=== PATIENT | female | born 1960 | race Caucasian/White ===

== ENCOUNTER 2016-10-09 19:10 | Emergency (ER) | payer MEDICAID, OTHER ==
[~2016-10-09] VITALS: Ht 162.6 cm; Wt 82.0 kg
[~2016-10-09 19:10] MED LIST: ATEN-51 PO; CIPR500T4 PO; HYDR-762 PO; LISI40TA9 PO; METF500T3 PO; METR500T PO; ONDA4TAB35 PO; SERT50TA PO
[2016-10-09 19:19] VITALS: Ht 162.6 cm; Wt 82.0 kg
[2016-10-09 19:55] LABS: URINE BLOOD (Dip) POC 3+ (NEGATIVE)
[2016-10-09] MEDS ORDERED: ACETAMINOPHEN 325 MG TAB PO ONE (20:00)
--- NOTE | 2016-10-09 20:10 | RADRPT ---
PROCEDURE: XR Chest. CLINICAL INDICATION: Fever. TECHNIQUE: Single frontal view of the chest was obtained COMPARISON: None FINDINGS: The heart and mediastinum are within normal limits. The lungs are clear. There is no pleural effusion or pneumothorax. IMPRESSION: No acute disease. RPTAT: [facility] Physician Cj Date Time Electronically viewed and signed by Physician Cj on 10/09/2016 20:10 RS/
[2016-10-09] MEDS ORDERED: CEFTRIAXONE 1 GM INJ IM ONE (20:30)
[2016-10-09] MEDS ORDERED: LIDOCAINE 1% (MDV) 20 ML INJ SC ONE (20:30)
[2016-10-09] MEDS ORDERED: IBUP-1542 PO (20:32)
[2016-10-09] MEDS ORDERED: CIPR500T4 PO (20:32)
--- NOTE | 2016-10-09 20:35 | ERD ---
ER Documentation Chief Complaint Date/Time DATE: 10/09/16 TIME: 20:33 Chief Complaint fever, body aches c 2 days HPI This 56-year-old female presents with fever and generalized body aches for last 2 days. She also complains of foul-smelling urine but denies dysuria, flank pain, cough, sore throat, vomiting, anterior abdominal pain. Most of her body aches previously was in the lower back but not the flank. ROS All systems reviewed and are negative except as per history of present illness. Medications Home Meds Active Scripts Ciprofloxacin Hcl* (Ciprofloxacin Hcl*) 500 Mg Tablet, 500 MG PO BID for 10 Days , TAB Prov:HUI MALDONADO MD 10/09/16 Ibuprofen* (Motrin*) 600 Mg Tab, 600 MG PO Q6, #15 TAB Prov:HUI MALDONADO MD 10/09/16 Ondansetron Hcl* (Zofran* ODT) 4 mg -ODT Tab.disper, 4 MG PO Q6 Y for NAUSEA AND /OR VOMITING, #30 TAB Prov:SARAH BALLARD MD 12/11/15 Hydrocodone Bit-Acetaminophen* ([place]*) 10-325 Mg Tablet, 1 TAB PO Q6 Y for PAIN , #12 TAB Prov:SARAH BALLARD MD 12/11/15 Metronidazole* (Flagyl*) 500 Mg Tablet, 500 MG PO TID for 7 Days, TAB Prov:SARAH BALLARD MD 12/11/15 Ciprofloxacin Hcl* (Ciprofloxacin Hcl*) 500 Mg Tablet, 500 MG PO BID for 7 Days , TAB Prov:SARAH BALLARD MD 12/11/15 Reported Medications Sertraline Hcl* (Zoloft*) 50 Mg Tablet, 50 MG PO DAILY, #30 TAB 12/11/15 Lisinopril* (Lisinopril*) 40 Mg Tablet, 40 MG PO DAILY, #30 TAB 12/11/15 Atenolol* (Atenolol*) 25 Mg Tablet, 25 MG PO DAILY, #30 TAB 12/11/15 Metformin Hcl* (Metformin Hcl* ER) 500 Mg Tab.sr.24h, 500 MG PO DAILY, #30 TAB 12/11/15 Allergies Allergies: Coded Allergies: Penicillins (Verified Allergy, Unknown, 12/11/15) PMhx/Soc History of Surgery: Yes ( X 2, APPY. SURGERY UNK DATE.) Anesthesia Reaction: No Hx Neurological Disorder: No Hx Respiratory Disorders: No Hx Cardiac Disorders: Yes (HTN) Hx Psychiatric Problems: No Hx Miscellaneous Medical Probl: No Hx Alcohol Use: No Hx Substance Use: No Hx Tobacco Use: No Physical Exam Vitals Vital Signs Date Time Temp Pulse Resp B/P Pulse Ox O2 Delivery O2 Flow Rate FiO2 10/09/16 19:19 100.6 91 20 136/82 97 Physical Exam Const: [] Alert, [id number] Head: Atraumatic Eyes: Normal Conjunctiva ENT: Normal External Ears, Nose and Mouth. TMs and oropharynx normal. Neck: Full range of motion..~ No meningismus. Resp: Clear to auscultation bilaterally Cardio: Regular rate and rhythm, no murmurs Abd: Soft, non tender, non distended. Normal bowel sounds Skin: No petechiae or rashes Back: No midline or flank tenderness. Mild tenderness in the lumbar paraspinous muscles but no flank tenderness. Ext: No cyanosis, or edema Neur: Awake and alert Psych: Normal Mood and Affect Results 24 hrs Laboratory Tests Test 10/09/16 19:54 Bedside Urine pH (LAB) 7.0 Bedside Urine Protein (LAB) 1+ Bedside Urine Glucose (UA) Negative Bedside Urine Ketones (LAB) Negative Bedside Urine Blood 3+ Bedside Urine Nitrite (LAB) Negative Bedside Urine Leukocyte Esterase (L 1+ Current Medications Medications (Trade) Dose Ordered Sig/Jose Route PRN Reason Start Time Stop Time Status Last Admin Dose Admin Acetaminophen (Tylenol Tab) 650 mg ONCE ONCE PO 10/09/16 20:00 10/09/16 20:01 DC 10/09/16 19:51 Ceftriaxone Sodium (Rocephin) 1 gm ONCE ONCE IM 10/09/16 20:30 10/09/16 20:31 DC Lidocaine (Xylocaine 1% (Mdv) 20 ml) 20 ml ONCE ONCE SC 10/09/16 20:30 10/09/16 20:31 DC Procedures/MDM Urine shows positive leukocytes and hemoglobin. Urine was sent for culture. Chest X-ray 1V Interpreted by me: Soft Tissue: No acute abnormalities Bones: No acute abnormalities Mediastinum/Cardiac Silhouette/Lungs: [No acute abnormalities]. Impression- normal 1 view chest x-ray Patient presents with febrile illness and myalgias and signs of UTI. Patient does have low back pain but no flank pain. Her myalgias suggest a viral illness but she will treated for UTI. There is no signs or symptoms to suggest acute abdomen, hypoxemia or pneumonia, meningitis, sepsis. She will treated here with Rocephin 1 g IM Tylenol. She will be discharged home with prescription of Cipro and ibuprofen instructions for clear fluids. Patient was advised to follow-up with primary doctor this week return to the ER for new or worsening symptoms. The patient was stable with no new complaints during the ER course. Clinically, there is no current evidence to suggest meningitis, sepsis, acute abdomen, pneumonia, acute coronary syndrome, pulmonary embolism, or any other emergent condition appearing to require further evaluation or hospitalization. The patient should certainly return for any new or worsening symptoms per the aftercare instructions. They should otherwise follow-up with her primary care doctor for reevaluation this week. Departure Diagnosis: Primary Impression: UTI (urinary tract infection) Urinary tract infection type: acute cystitis Hematuria presence: without hematuria Qualified Code: N30.00 - Acute cystitis without hematuria Additional Impression: Fever Fever type: unspecified Qualified Code: R50.9 - Fever, unspecified fever cause Condition: Stable Patient Instructions: Understanding Urinary Tract Infections (UTIs), Fever Control (Adult) Additional Instructions: IGNACIO INFECCCION EN ORINA , IVORY POSIBLEMENTE un virus que dura 2-4 jeong. cheque otro [place] el proximo elpidio para mas simptomas- vomito, dolor, mat, problemas con respirando, o con fernandez doctor primario. HUI MALDONADO MD Oct 09, 2016 20:35
[2016-10-09 21:41] VITALS: TEMP 99
== END 2016-10-09 21:43 | disposition home or self-care (01) ==
LOC: FTE 19:10
DX: J06.9 Acute upper respiratory infection, unspecified (principal); I10 Essential (primary) hypertension; Z79.84 Long term (current) use of oral hypoglycemic drugs
CPT/HCPCS: 71010; 81003; 96372; J0696; Z7502; Z7610

== ENCOUNTER 2018-03-07 15:22 | Emergency (ER) | END 2018-03-07 19:15 | disposition home or self-care (01) ==

== ENCOUNTER 2018-08-29 19:54 | Emergency (ER) | payer OTHER ==
[~2018-08-29] VITALS: Wt 94.7 kg
[~2018-08-29 19:54] MED LIST changes: +IBUP-1542 PO; +LISI40TA3 PO; -LISI40TA9 PO; +NAPR-985 PO; +PHEN-538 PO
[2018-08-29 20:16] VITALS: BP 169/95; PULSE 83; RESP 22
[2018-08-29] MEDS ORDERED: KETOROLAC 30 MG INJ IM STA (23:36)
[2018-08-29] MEDS ORDERED: HYDR-4011 PO (23:56)
[2018-08-29] MEDS ORDERED: CYCL10TA7 PO (23:56)
[2018-08-29] MEDS ORDERED: IBUP800T48 PO (23:56)
--- NOTE | 2018-08-29 23:58 | ERD ---
ER Documentation Chief Complaint Chief Complaint post MAXWELL/ bilat arm pain 'muscle pain' x1mo no relief w motrin HPI 58-year-old female presents with 1 month of bilateral sided neck pain that radiates to her right and left upper extremities with pain and at times paresthesias. No injury or trauma. She has been taking Tylenol at home but does not help. Denies any chest pain palpitations shortness of breath or diaphoresis. No fevers. No weakness. ROS All systems reviewed and are negative except as per history of present illness. Medications Home Meds Active Scripts Hydrocodone/Acetaminophen ([place] 5-325 Tablet) 1 Each Tablet, 1 TAB PO Q6H PRN for PAIN, #15 TAB Prov:FRANDY BAILEY PA-C 08/29/18 Ibuprofen* (Motrin*) 800 Mg Tab, 800 MG PO Q6, #30 TAB Prov:FRANDY BAILEY PA-C 08/29/18 Cyclobenzaprine Hcl* (Cyclobenzaprine Hcl*) 10 Mg Tablet, 10 MG PO BID, #15 TAB Prov:FRANDY BAILEY PA-C 08/29/18 Phenazopyridine Hcl* (Pyridium*) 200 Mg Tab, 200 MG PO TID PRN for URINARY PAIN, #6 TAB Prov:LENI HYATT PA-C 03/07/18 Naproxen* (Naprosyn*) 500 Mg Tablet, 500 MG PO BID PRN for PAIN AND/OR INFLAMMATION, #30 TAB Prov:LENI HYATTC 18 Ciprofloxacin Hcl* (Ciprofloxacin Hcl*) 500 Mg Tablet, 500 MG PO BID for 10 Days, TAB Prov:HUI MALDONADO MD 10/09/16 Ibuprofen* (Motrin*) 600 Mg Tab, 600 MG PO Q6, #15 TAB Prov:HUI MALDONADO MD 10/09/16 Ondansetron Hcl* (Zofran* ODT) 4 mg -ODT Tab.disper, 4 MG PO Q6 PRN for NAUSEA AND/OR VOMITING, #30 TAB Prov:SARAH BALLARD MD 12/11/15 Hydrocodone Bit-Acetaminophen* ([place]*) 10-325 Mg Tablet, 1 TAB PO Q6 PRN for PAIN, #12 TAB Prov:SARAH BALLARD MD 5/25/16 Metronidazole* (Flagyl*) 500 Mg Tablet, 500 MG PO TID for 7 Days, TAB Prov:SARAH BALLARD MD 12/11/15 Ciprofloxacin Hcl* (Ciprofloxacin Hcl*) 500 Mg Tablet, 500 MG PO BID for 7 Days, TAB Prov:SARAH BALLARD MD 12/11/15 Reported Medications Sertraline Hcl* (Zoloft*) 50 Mg Tablet, 50 MG PO DAILY, #30 TAB 12/11/15 Lisinopril* (Lisinopril*) 40 Mg Tablet, 40 MG PO DAILY, #30 TAB 12/11/15 Atenolol* (Atenolol*) 25 Mg Tablet, 25 MG PO DAILY, #30 TAB 12/11/15 Metformin Hcl* (Metformin Hcl* ER) 500 Mg Tab.sr.24h, 500 MG PO DAILY, #30 TAB 12/11/15 Allergies Allergies: Coded Allergies: Penicillins (Verified Allergy, Unknown, 12/11/15) PMhx/Soc History of Surgery: Yes ( X 2, APPY. SURGERY UNK DATE.) Anesthesia Reaction: No Hx Neurological Disorder: No Hx Respiratory Disorders: No Hx Cardiac Disorders: Yes (HTN) Hx Psychiatric Problems: No Hx Miscellaneous Medical Probl: No Hx Alcohol Use: No Hx Substance Use: No Hx Tobacco Use: No Smoking Status: Never smoker FmHx Family History: diabetes Physical Exam Vitals Vital Signs Date Temp Pulse Resp B/P (MAP) Pulse Ox O2 O2 Flow FiO2 Time Delivery Rate 08/29/18 99.4 83 22 169/95 97 20:16 (119) Physical Exam INITIAL VITAL SIGNS: Reviewed by me GENERAL: Awake, alert and oriented x 4, well appearing, nontoxic, speaking in full sentences. No acute distress HEAD: Atraumatic NECK: Supple. No masses. Full range of motion. No meningismus. No midline tenderness. EYES: EOMI. PERRL. CV: Regular rate and rhythm. No murmurs, rubs, or gallops. ABDOMEN: Soft, non-distended. Nontender. Negative [place]. Negative [place] point tenderness. No CVA tenderness bilaterally. No guarding. No rebound. : Deffered. EXTREMITIES: No clubbing or cyanosis. No edema. Moving all extremities normally. Nontender extremities throughout, sensation to light touch is intact throughout Results 24 hrs Current Medications Medications Dose Sig/Jose Start Time Status Last (Trade) Ordered Route PRN Stop Time Admin Dose Reason Admin Ketorolac 30 mg ONCE STAT 08/29/18 DC 08/29/18 Tromethamine IM 23:36 23:46 (Toradol) 08/29/18 23:37 1 tab ONCE ONCE 08/30/18 08/29/18 Acetaminophen PO 00:00 23:46 / 08/30/18 00:01 Hydrocodone Bitart ([place] (5/325)) Procedures/MDM Patient has neck and arm pain. Pain stems from the neck. Likely this is a cervical radiculopathy. No chest pain palpitations diaphoresis or shortness of breath. Patient was given Toradol and a [place] here and discharged with ibuprofen Flexeril and [place]. Patient counseled regarding my diagnostic impression and care plan. Prior to discharge all questions answered. Pt agrees with treatment plan and understands strict return precautions. Pt is instructed to follow up with primary care provider within 24-48 hours. Precautionary instructions provided including instructions to return to the ER if not impro ving or for any worsening or changing symptoms or concerns. Departure Diagnosis: Primary Impression: Cervical radiculopathy Condition: Stable Patient Instructions: Radiculopathy, Cervical Additional Instructions: Llame al doctor MAANA y larissa jasmyne AURELIA PARA DENTRO DE 1-2 CHANDLER.Dgale a la secretaria que nosotros le instruimos hacer esta aurelia.Avise o llame si fernandez condicin se empeora antes de la aurelia. Regresa aqui si peor o no mejor. FRANDY BAILEY PA-C Aug 29, 2018 23:58
[2018-08-30] MEDS ORDERED: HYDROCODONE/APAP (5/325) TAB PO ONE
== END 2018-08-30 00:22 | disposition home or self-care (01) ==
LOC: FTE 19:54
DX: M54.12 Radiculopathy, cervical region (principal); I10 Essential (primary) hypertension; Z79.84 Long term (current) use of oral hypoglycemic drugs
CPT/HCPCS: J1885; Z7610; 96372

== ENCOUNTER 2018-09-22 17:21 | Emergency (ER) | payer OTHER ==
[~2018-09-22] VITALS: Ht 167.6 cm; Wt 85.1 kg
[~2018-09-22 17:21] MED LIST changes: +CYCL10TA7 PO; +HYDR-4011 PO; +IBUP800T48 PO
[2018-09-22 17:24] VITALS: Ht 167.6 cm; Wt 85.1 kg
[2018-09-23] MEDS ORDERED: KETOROLAC 30 MG INJ IM STA (01:10)
[2018-09-23] MEDS ORDERED: IBUP-1542 PO (01:12)
[2018-09-23] MEDS ORDERED: HYDR-4011 PO (01:12)
--- NOTE | 2018-09-23 01:19 | ERD ---
ER Documentation Chief Complaint Chief Complaint Complains of generalized bodyaches with flu symptoms HPI 58-year-old female presents with neck pain radiating down her right arm. States that she currently is awaiting an MRI for this condition. Denies any injury or history of trauma. She has a history of cervical radiculopathy. She denies any numbness or tingling. Denies fevers. Currently taking naproxen. Last dose was at 12:00 today. Denies fevers, nausea, vomiting, diarrhea. ROS All systems reviewed and are negative except as per history of present illness. Medications Home Meds Active Scripts Ibuprofen* (Motrin*) 600 Mg Tab, 600 MG PO Q6 for pain, #30 TAB Prov:LENI CORONA 09/23/18 Hydrocodone/Acetaminophen ([place] 5-325 Tablet) 1 Each Tablet, 1-2 TAB PO Q6H PRN for PAIN, #15 TAB Prov:LENI CORONA 09/23/18 Hydrocodone/Acetaminophen ([place] 5-325 Tablet) 1 Each Tablet, 1 TAB PO Q6H PRN for PAIN, #15 TAB Prov:FRANDY BAILEY PA-C 08/29/18 Ibuprofen* (Motrin*) 800 Mg Tab, 800 MG PO Q6, #30 TAB Prov:FRANDY BAILEY PA-C 08/29/18 Cyclobenzaprine Hcl* (Cyclobenzaprine Hcl*) 10 Mg Tablet, 10 MG PO BID, #15 TAB Prov:FRANDY BAILEY PA-C 08/29/18 Phenazopyridine Hcl* (Pyridium*) 200 Mg Tab, 200 MG PO TID PRN for URINARY PAIN, #6 TAB Prov:LENI HYATT PA-C 03/07/18 Naproxen* (Naprosyn*) 500 Mg Tablet, 500 MG PO BID PRN for PAIN AND/OR INFLAMMATION, #30 TAB Prov:LENI HYATT PA-C 03/07/18 Ciprofloxacin Hcl* (Ciprofloxacin Hcl*) 500 Mg Tablet, 500 MG PO BID for 10 Days, TAB Prov:HUI MALDONADO MD 10/09/16 Ibuprofen* (Motrin*) 600 Mg Tab, 600 MG PO Q6, #15 TAB Prov:HUI MALDONADO MD 10/09/16 Ondansetron Hcl* (Zofran* ODT) 4 mg -ODT Tab.disper, 4 MG PO Q6 PRN for NAUSEA AND/OR VOMITING, #30 TAB Prov:SARAH BALLARD MD 12/11/15 Hydrocodone Bit-Acetaminophen* ([place]*) 10-325 Mg Tablet, 1 TAB PO Q6 PRN for PAIN, #12 TAB Prov:SARAH BALLARD MD 12/11/15 Metronidazole* (Flagyl*) 500 Mg Tablet, 500 MG PO TID for 7 Days, TAB Prov:SARAH BALLARD MD 12/11/15 Ciprofloxacin Hcl* (Ciprofloxacin Hcl*) 500 Mg Tablet, 500 MG PO BID for 7 Days, TAB Prov:SARAH BALLARD MD 12/11/15 Reported Medications Sertraline Hcl* (Zoloft*) 50 Mg Tablet, 50 MG PO DAILY, #30 TAB 12/11/15 Lisinopril* (Lisinopril*) 40 Mg Tablet, 40 MG PO DAILY, #30 TAB 12/11/15 Atenolol* (Atenolol*) 25 Mg Tablet, 25 MG PO DAILY, #30 TAB 12/11/15 Metformin Hcl* (Metformin Hcl* ER) 500 Mg Tab.sr.24h, 500 MG PO DAILY, #30 TAB 12/11/15 Allergies Allergies: Coded Allergies: Penicillins (Verified Allergy, Unknown, 12/11/15) PMhx/Soc History of Surgery: Yes ( X 2, APPY. SURGERY UNK DATE.) Anesthesia Reaction: No Hx Neurological Disorder: No Hx Respiratory Disorders: No Hx Cardiac Disorders: Yes (HTN) Hx Psychiatric Problems: No Hx Miscellaneous Medical Probl: No Hx Alcohol Use: No Hx Substance Use: No Hx Tobacco Use: No Smoking Status: Never smoker FmHx Family History: No diabetes, No coronary disease, No other Physical Exam Vitals Vital Signs Date Temp Pulse Resp B/P (MAP) Pulse Ox O2 O2 Flow FiO2 Time Delivery Rate 09/22/18 99.2 103 20 168/85 98 17:24 (112) Physical Exam Const: No acute distress Head: Atraumatic Eyes: Normal Conjunctiva ENT: Normal External Ears, Nose and Mouth. Neck: Full range of motion. No meningismus. Resp: Clear to auscultation bilaterally Cardio: Regular rate and rhythm, no murmurs Abd: Soft, non tender, non distended. Normal bowel sounds Skin: No petechiae or rashes Back: No midline or flank tenderness Ext: No cyanosis, or edema. 5 out of 5 strength in the upper extremities bilaterally. There is no edema erythema or bony deformities noted in the upper extremities. Distal sensation and pulses intact. Neur: Awake and alert Psych: Normal Mood and Affect Results 24 hrs Current Medications Medications Dose Sig/Jose Start Time Status Last (Trade) Ordered Route PRN Stop Time Admin Dose Reason Admin Ketorolac 30 mg ONCE STAT 09/23/18 DC 09/23/18 Tromethamine IM 01:10 09/23/18 01:20 (Toradol) 01:11 Prednisone 40 mg ONCE ONCE 09/23/18 (Prednisone) PO 01:30 09/23/18 01:31 1 tab ONCE ONCE 09/23/18 09/23/18 Acetaminophen PO 01:30 09/23/18 01:19 / 01:31 Hydrocodone Bitart ([place] (5/325)) Procedures/MDM 58-year-old female presents with neck pain radiating down her right arm. States that she currently is awaiting an MRI for this condition. Denies any injury or history of trauma. She has a history of cervical radiculopathy. She denies any numbness or tingling. Denies fevers. Currently taking naproxen. Last dose was at 12:00 today. Denies fevers, nausea, vomiting, diarrhea. Patient's presentation is consistent with cervical radiculopathy. I told the patient that in the ER we cannot treat the underlying condition rather I can only help her with her pain. She needs to see an orthopedist. I gave her the number for Dr. Palacios. She stated that she is currently awaiting an MRI. I have low suspicion for neurovascular compromise, compartment syndrome, fracture, osteomyelitis, septic joint, or other emergent condition. Patient discharged with strict ER precautions. Patient advised to follow up with PMD. All questions answered at discharge. Departure Diagnosis: Primary Impression: Cervical radiculopathy Condition: Stable Patient Instructions: Neck Pain, No Trauma Referrals: DONALDO PALACIOS MD Additional Instructions: FOLLOW UP WITH YOUR PRIMARY CARE PHYSICIAN TOMORROW.Return to this facility if you are not improving as expected. I also included the phone number to Dr Palacios. Please call him to schedule an appointment. LENI CORONA Sep 23, 2018:19
[2018-09-23] MEDS ORDERED: HYDROCODONE/APAP (5/325) TAB PO ONE (01:30)
[2018-09-23] MEDS ORDERED: predniSONE 20 MG TAB PO ONE (01:30)
[2018-09-23] MEDS ORDERED: DEXAMETHASONE 10 MG/ML 1 ML INJ IM ONE (01:30)
[2018-09-23 01:58] VITALS: BP 141/71; PULSE 71; RESP 18
== END 2018-09-23 02:01 | disposition home or self-care (01) ==
LOC: FTE 17:21
DX: M54.12 Radiculopathy, cervical region (principal); I10 Essential (primary) hypertension
CPT/HCPCS: 96372; J1100; J1885; J7512; Z7502; Z7610